=== PATIENT | female | born 1990 | race Caucasian/White ===

== ENCOUNTER 2017-08-07 23:24 | Emergency (ER) | payer SELFPAY ==
--- NOTE | 2017-08-08 00:09 | RAD ---
AP AND OBLIQUE RIGHT RIBS: History: Fall. Pain. FINDINGS: AP and oblique views obtained. No evidence of right rib fractures or bony lesions seen. IMPRESSION: Unremarkable AP and oblique views right ribs. POS: [facility]
[2017-08-08] MEDS ORDERED: Acetaminophen/Codeine 30-300mg Tablet ONE (01:28)
== END 2017-08-08 01:33 | disposition home or self-care (01) ==
LOC: ERS 23:24
DX: S20.211A Contusion of right front wall of thorax, initial encounter (principal); F17.210 Nicotine dependence, cigarettes, uncomplicated; V00.131A Fall from skateboard, initial encounter; Y93.21 Activity, ice skating